=== PATIENT | male | born 1945 | race Caucasian/White ===

== ENCOUNTER 2020-11-06 15:03 | Emergency (ER) | payer OTHER ==
[~2020-11-06] VITALS: Ht 182.9 cm; Wt 109.4 kg
--- NOTE | 2020-11-06 15:04 | NUR ---
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 CHRONIC PAIN. PT WANTED TO GO TO [facility] BUT WAS DIVERTED TO [facility]. NO INTERVENTIONS PER EMS. PT WAS AMBULATING WITH ASSITANCE.
--- NOTE | 2020-11-06 17:06 | NUR ---
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
[2020-11-06] MEDS ORDERED: METHOCARBAMOL 750 MG TABLET ONE (17:50)
[2020-11-06] MEDS ORDERED: KETOROLAC 30 MG/1 ML ONE (17:50)
[2020-11-06 17:57] VITALS: BP 150/48
[2020-11-06] MEDS ORDERED: KETOROLAC 30 MG/1 ML IM ONE (18:00)
[2020-11-06] MEDS ORDERED: METHOCARBAMOL 750 MG TABLET PO ONE (18:00)
--- NOTE | 2020-11-06 18:45 | NUR ---
PT AMBULATORY TO BR WITH STEADY GAIT. PT REPORTS PAIN DECREASED AT THIS TIME.
--- NOTE | 2020-11-06 18:57 | NUR ---
Report from REMIGIO Sharif. Pt walked steady gait to bathroom and back; informed. Dispo being prepared.
== END 2020-11-06 19:14 | disposition home or self-care (01) ==
LOC: ED 19:05
DX: M51.36 Other intervertebral disc degeneration, lumbar region (principal); M54.41 Lumbago with sciatica, right side; F17.200 Nicotine dependence, unspecified, uncomplicated
CPT/HCPCS: 72110; 96372; 99283; J1885